=== PATIENT | female | born 1995 | race Caucasian/White ===

== ENCOUNTER → 2018-05-04 | Outpatient (CLI) | payer OTHER ==
--- NOTE | 2018-05-04 12:00 | KCIC ---
EXAM: Abdomen, single view. HISTORY: Right lower quadrant pain. COMPARISON: None. FINDINGS: A frontal view frontal views of the abdomen are obtained. There is gas and stool within the proximal colon. No abnormally dilated air-filled loop of bowel seen. There is no suspicious osseous lesion. IMPRESSION: Nonobstructive bowel gas pattern. Electronically signed by: Nessa Tucker MD (05/04/2018 11:57 AM) [facility]
== END | disposition home or self-care (01) ==
LOC: KCIC 10:42
PROVIDERS: ATTEND Family Medicine
DX: R10.31 Right lower quadrant pain (principal)
CPT/HCPCS: 74018

== ENCOUNTER → 2019-07-25 | Outpatient (CLI) | payer MEDICAID ==
--- NOTE | 2019-07-26 10:44 | KCIC ---
BRAIN W/O CONTRAST History: Chronic headache. Dizziness. Technique: Multiplanar, multi sequential MR imaging was performed of the brain without contrast. Comparison: None Findings: No acute infarct. No intracranial hemorrhage. No mass effect. No hydrocephalus. Extra-axial spaces are unremarkable. Imaged orbits are unremarkable. Imaged paranasal sinuses and mastoid air cells are clear. Impression: 1. No acute intracranial abnormality. Electronically signed by: Jaime Lynne DO (07/26/2019 10:40 AM) [id number]
== END | disposition home or self-care (01) ==
LOC: KCIC MRI 15:19
PROVIDERS: ATTEND Family Medicine
DX: R51 Headache (principal); R42 Dizziness and giddiness; G89.29 Other chronic pain
CPT/HCPCS: 70551